=== PATIENT | female | born 1965 | race African-American/Black ===

== ENCOUNTER 2020-11-13 08:02 | Emergency (ER) | payer OTHER ==
[~2020-11-13] VITALS: Ht 165.1 cm; Wt 136.1 kg
[2020-11-13] MEDS ORDERED: KETOROLAC TROMETHAMINE 30 MG/ML VIAL IM STA (08:12)
[2020-11-13] MEDS ORDERED: ULTRAM50 MG PO (10:10)
== END 2020-11-13 10:53 | disposition home or self-care (01) ==
LOC: ER 08:47
DX: M79.621 Pain in right upper arm (principal); M65.221 Calcific tendinitis, right upper arm; I10 Essential (primary) hypertension
CPT/HCPCS: 99283; J1885